=== PATIENT | male | born 1990 | race Caucasian/White ===

== ENCOUNTER 2019-06-02 18:51 | Emergency (ER) | payer OTHER ==
[~2019-06-02] VITALS: Ht 160 cm; Wt 59.0 kg
[2019-06-02 21:07] LABS: HEMATOCRIT 40.3 % (42.0-52.0); HEMOGLOBIN 14.1 gm/dL (14.0-18.0); MCH 31.9 pg (26.0-34.0); MCV 91.1 fL (80.0-100.0); MPV 7.5 fl. (7.2-11.1); RBC 4.42 mil/uL (4.50-6.00); RDW-CV 13.2 % (10.5-14.5); WBC 6.9 thou/uL (4.0-11.0)
[2019-06-02 21:15] LABS: CALCIUM 9.1 mg/dL (8.5-10.1); CREATININE 0.9 mg/dL (0.6-1.3); POTASSIUM 3.3 mmol/L (3.5-5.1)
[2019-06-02 22:45] VITALS: BP 138/74
== END 2019-06-02 22:45 | disposition home or self-care (01) ==
LOC: M.ERS 18:51
PROVIDERS: Personal Emergency Response Attendant
DX: S50.01XA Contusion of right elbow, initial encounter (principal); M54.2 Cervicalgia; Y04.8XXA Assault by other bodily force, initial encounter; Y92.89 Other specified places as the place of occurrence of the external cause; Y93.89 Activity, other specified; Y99.8 Other external cause status